=== PATIENT | male | born 1975 | race Caucasian/White ===

== ENCOUNTER 2022-03-23 09:40 | Outpatient (CLI) | payer OTHER | END 2022-03-23 23:59 | disposition home or self-care (01) | LOC: MLB 09:40 → EDSTATUS 03-24 09:10 | PROVIDERS: ATTEND Internal Medicine Gastroenterology | DX: Z01.812 Encounter for preprocedural laboratory examination (principal); Z20.822 Contact with and (suspected) exposure to COVID-19 ==

== ENCOUNTER 2022-04-14 08:05 | Day surgery (SDC) | payer OTHER ==
[~2022-04-14] VITALS: Ht 188 cm; Wt 88.5 kg
[2022-04-14] MEDS ORDERED: diphenhydrAMINE 50 MG/ML VIAL ONE (08:44)
[2022-04-14] MEDS ORDERED: LIDOCAINE 2% 100 MG/5 ML UJET TP ONE (08:45)
[2022-04-14] MEDS ORDERED: MIDAZOLAM 5 MG/5 ML VIAL ONE (08:45)
[2022-04-14] MEDS ORDERED: fentaNYL citrate 0.05 MG/ML VIAL ONE (08:45)
[2022-04-14] MEDS ORDERED: MIDAZOLAM 2 MG/2 ML VIAL IVP ONE (11:40)
[2022-04-14] MEDS ORDERED: diphenhydrAMINE 50 MG/ML VIAL IVP ONE (11:40)
[2022-04-14] MEDS ORDERED: fentaNYL citrate 0.05 MG/ML VIAL IVP ONE (11:40)
== END 2022-04-14 10:23 | disposition home or self-care (01) ==
LOC: MOR 08:05 → MMU 08:06 → MOR 10:23
PROVIDERS: ATTEND Internal Medicine Gastroenterology
DX: Z12.11 Encounter for screening for malignant neoplasm of colon (principal); F17.210 Nicotine dependence, cigarettes, uncomplicated; Z20.822 Contact with and (suspected) exposure to COVID-19; Z79.899 Other long term (current) drug therapy
CPT/HCPCS: 45378; 87426; J1200; J2250; J3010